=== PATIENT | female | born 1990 | race Caucasian/White ===

== ENCOUNTER 2019-05-29 02:35 | Emergency (ER) | payer OTHER ==
[2019-05-29 02:58] VITALS: BP 116/74; PULSE 100; BMI 30.2
[2019-05-29] MEDS ORDERED: ACETAMINOPHEN 500 MG TABLET (FP) PO ONE (03:06)
--- NOTE | 2019-05-29 03:08 | PDOC ---
History of Present Illness <MezaRoma - Last Filed: 05/29/19 05:11> - General History Source: Patient Exam Limitations: No Limitations - History of Present Illness Initial Comments: 05/29/19 03:02 28 YO female who believes she is based on positive home tests x4 yesterday, who p/w lower abdominal cramping today without associated symptoms. She denies vaginal bleeding or discharge, f/c/n/v/d/c, dysuria, hematuria, new back pain, dizziness, or other symptoms. She has not seen an OB/ COMMUNICATIONS EXECUTIVE provider yet and has not had an US this . She cannot recall the date of her LMP but states that she has had one this year. <Garcia,Agueda - Last Filed: 05/29/19 05:27> - General Stated Complaint: ABD PAIN Time Seen by Provider: 05/29/19 02:55 Past History <MezaRoma - Last Filed: 05/29/19 05:11> - Past Medical History COPD: No - Immunization History Immunization Up to Date: Yes - Suicide/Smoking/Psychosocial Hx Smoking History: Never smoked Have you smoked in the past 12 months: No Hx Alcohol Use: No Drug/Substance Use Hx: No Substance Use Type: None <Agueda aGrcia - Last Filed: 05/29/19 05:27> - Past Medical History Allergies/Adverse Reactions: Allergies Allergy/AdvReac Type Severity Reaction Status Date / Time No Known Allergies Allergy Verified 09/15/15 17:18 Home Medications: Ambulatory Orders Multivitamin [Multiple Vitamins] 1 each PO DAILY 05/29/19 Review of Systems - Review of Systems Able to Perform ROS?: Yes Comments:: 05/29/19 03:13 GEN: no fever, chills, malaise, generalized weakness, or weight change HEENT: no ear pain, sore throat, vision change, or eye pain CV: no chest pain, palpitations, lightheadedness, syncope, or edema RESP: no cough, wheezing, or SOB GI: abdominal pain, no nausea, vomiting, diarrhea, constipation, or white/black/ bloody stool : no dysuria, hematuria, incontinence, retention, bleeding, or discharge MSK: no neck/back pain, muscle weakness/pain, or joint swelling/pain NEURO: no headache, seizure, vertigo, numbness, tingling, or focal weakness PSYCH: no substance use, no behavior change SKIN: no jaundice, no rash ROS otherwise negative except as noted in HPI <Agueda Garcia - Last Filed: 05/29/19 05:27> *Physical Exam - Vital Signs Last Vital Signs Temp Pulse Resp BP Pulse Ox 100 H 18 116/74 100 05/29/19 02:53 05/29/19 02:53 05/29/19 02:53 05/29/19 02:53 <Roma Meza - Last Filed: 05/29/19 05:11> - Vital Signs Last Vital Signs Temp Pulse Resp BP Pulse Ox 100 H 18 116/74 100 05/29/19 02:53 05/29/19 02:53 05/29/19 02:53 05/29/19 02:53 - Physical Exam Comments: 05/29/19 03:14 GENERAL: well-appearing, A/Ox4, no distress, answers questions appropriately HEENT: PERRLA, EOMI, moist mucous membranes NECK/BACK: no midline ttp, no spinal stepoff or deformity, no hematoma, full ROM , neck supple CARDIOVASCULAR: regular rate/rhythm, normal S1S2, no MGR, strong peripheral pulses, capillary refill <2 seconds, extremities wwp, no edema LUNGS/RESPIRATORY: no respiratory distress, CTAB GI/ABDOMEN: symmetric [id number], normoactive BS, soft, mild suprapubic ttp, no midline pulsatile masses : no CVA tenderness EXTREMITIES: no muscle atrophy, no acute deformity SKIN: warm and dry, no pallor, no jaundice, no rash, no bruising, no skin breakdown, no cuts, no lesions NEUROLOGICAL: GCS 15, CN II-XII grossly intact, 5/5 strength proximally and distally, no facial droop <Agueda Garcia - Last Filed: 05/29/19 05:27> Procedures - Bedside Ultrasound Remarks: 05/29/19 05:15 STUDY: Early OB INDICATION: Suprapubic cramping in early FINDINGS: Unable to identify IUP or intrauterine yolk sac, no pelvic free fluid CONCLUSION: Likely too early to identify IUP, no e/o ectopic wwo rupture <Agueda Garcia - Last Filed: 05/29/19 05:27> ED Treatment Course - LABORATORY CBC & Chemistry Diagram: 05/29/19 03:15 05/29/19 03:15 - ADDITIONAL ORDERS Additional order review: Laboratory Results 05/29/19 05/29/19 05/29/19 03:20 03:15 03:15 Sodium 139 Potassium 3.6 Chloride 109 H Carbon Dioxide 23 Anion Gap 7 L BUN 11.1 Creatinine 0.6 Est GFR (CKD-EPI)AfAm 143.77 Est GFR (CKD-EPI)NonAf 124.04 Random Glucose 98 Calcium 8.5 Total Bilirubin 0.3 AST 7 L ALT 19 Alkaline Phosphatase 54 Total Protein 6.9 Albumin 3.6 Beta HCG, Quant 133.9 Urine Color Yellow Urine Appearance Clear Urine pH 6.5 Ur Specific [place] 1.023 Urine Protein Negative Urine Glucose (UA) Negative Urine Ketones Negative Urine Blood Trace Urine Nitrite Negative Urine Bilirubin Negative Urine Urobilinogen 2.0 H Ur Leukocyte Esterase Negative Urine WBC (Auto) 1 Urine RBC (Auto) 5 Urine Casts (Auto) 0 U Epithel Cells (Auto) 0.9 Urine Bacteria (Auto) 82.5 05/29/19 03:15 RBC 4.24 MCV 88.8 MCHC 33.6 RDW 13.4 MPV 7.5 Neutrophils % 57.0 Lymphocytes % 29.9 Monocytes % 7.6 Eosinophils % 4.9 H Basophils % 0.6 - Medications Given in the ED: ED Medications Discontinued Medications Generic Name Dose Route Start Last Admin Trade Name Freq PRN Reason Stop Dose Admin Acetaminophen 975 mg 05/29/19 03:06 05/29/19 04:05 Tylenol - PO 05/29/19 03:07 975 mg ONCE ONE Administration <Roma Meza - Last Filed: 05/29/19 05:11> - LABORATORY CBC & Chemistry Diagram: 05/29/19 03:15 05/29/19 03:15 <Agueda Garcia - Last Filed: 05/29/19 05:27> Medical Decision Making - Medical Decision Making 05/29/19 03:10 First trimester female p/w lower abdominal pain. Initial Vital Signs Pulse Resp BP Pulse Ox 100 H 18 116/74 100 05/29/19 02:53 05/29/19 02:53 05/29/19 02:53 05/29/19 02:53 Exam: As noted in Physical Exam section. DDX IBNLT: most likely round ligament pain as normal progression of , also considered are UTI and threatened/inevitable/incomplete/complete/septic , ectopic. Unlikely to be PID, TOA/cervicitis, or endometritis given lack of any additional symptoms other than the abdominal pain and lack of patient concern for STI. Also possible are ruptured ovarian cyst, ovarian torsion, constipation, fibroids, etc. W/U ordered: Labs as noted below, TVUS. TX ordered: Tylenol US: Labs: Reassessment: Repeat VS: DISCHARGE Workup is not concerning for emergency-level pathology at this time. The Pt is appropriate for discharge home w/ close outpatient f/u. The Pt is comfortable with this plan and will follow up with their primary care provider in 1-3 days. She will also follow up with her COMMERCIAL CONSTRUCTION ESTIMATOR in 1-3 days. She will take primarily Tylenol for pain. Specific return precautions are discussed and they will come back to the ER if necessary. <Agueda Garcia - Last Filed: 05/29/19 05:27> *DC/Admit/Observation/Transfer <Roma Meza - Last Filed: 05/29/19 05:11> - Discharge Dispostion Decision to Admit order: No <Agueda Garcia - Last Filed: 05/29/19 05:27> Diagnosis at time of Disposition: Abdominal pain during Qualifiers: Trimester: first trimester Qualified Code(s): O26.891 - Other specified related conditions, first trimester; R10.9 - Unspecified abdominal pain - Discharge Dispostion Disposition: HOME Condition at time of disposition: Improved - Referrals Referrals: ON STAFF,NOT [Primary Care Provider] - - Patient Instructions Printed Discharge Instructions: DI for Abdominal Pain -- Early Additional Instructions: You were seen in the ER for pelvic pain in early . We did an exam, laboratory work on your blood and urine, and an ultrasound, and we did not find any signs of an emergency. You hormone levels were elevated, but your ultrasound did not show the yet because it appears to be too early. Your pain improved with the medications we gave you here in the ER. After our assessment, we believe you are not having a medical emergency and you are safe to go home. Please take tylenol for any discomfort. Follow up with your COMMERCIAL CONSTRUCTION ESTIMATOR. Call their clinic [facility], tell them you were seen in the ER, and tell them you need an appointment. Please come back to the ER at any time, 24 hours a day, for any new or worsening symptoms, like worsening pelvic pain, discharge, high fever, or other symptoms. If you are having severe or life threatening symptoms , or symptoms that make it unsafe to drive or have someone drive you, please call 911. - Post Discharge Activity
--- NOTE | 2019-05-29 03:21 | PDOC ---
Attending Attestation - Resident Resident Name: RadhaAgueda - ED Attending Attestation I have performed the following: I have examined & evaluated the patient, The case was reviewed & discussed with the resident, I agree w/resident's findings & plan - HPI HPI: 05/29/19 05:13 Pt states that 2 days ago she felt like her saliva was "thick" as it ws when she had her first ; she did a home preg test that was +. Then she was on a boat today and she felt suprapubic pain; a bere told her how she lost her preg after a boat ride, so patient comes to the ER to make sure her preg is okay. 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 - Physicial Exam PE: 05/29/19 05:16 Agree with resident exam. Pt has a normal exam. - Medical Decision Making 05/29/19 05:16 beta-HCG is 133 and she is too early to see anything on sono; pt will be discharged home with OB follow up as an outpatient.
[2019-05-29 03:25] LABS: HEMOGLOBIN 12.6 GM/dL (10.7-15.3); MCH 29.8 pg (25.7-33.7); RBC 4.24 M/mm3 (3.60-5.2)
[2019-05-29 03:29] LABS: BASO % 0.6 % (0-2.0); EOS % 4.9 % (0-4.5); HEMATOCRIT 37.6 % (32.4-45.2); LYMPH % 29.9 % (8-40); MCHC 33.6 g/dl (32.0-36.0); MEAN CELL VOLUME 88.8 fl (80-96); MEAN PLT VOLUME 7.5 fl (7.5-11.1); MONO % 7.6 % (3.8-10.2); PLATELET COUNT 234 K/MM3 (134-434); RDW 13.4 % (11.6-15.6)
[2019-05-29 04:01] LABS: ALBUMIN 3.6 g/dl (3.4-5.0); BILIRUBIN,TOTAL 0.3 mg/dL (0.2-1); BLOOD UREA NITROGEN 11.1 mg/dL (7-18); CALCIUM 8.5 mg/dL (8.5-10.1); CREATININE 0.6 mg/dL (0.55-1.3); POTASSIUM 3.6 mmol/L (3.5-5.1); TOT PROT 6.9 g/dl (6.4-8.2)
[2019-05-29] MEDS ORDERED: ACETAMINOPHEN 325 MG TABLET (FP) ONE (04:01)
[2019-05-29 04:27] LABS: EPI CELLS 0.9 /HPF (0-5/HPF); HYALINE CASTS 0 /lpf (0-8); PH,URINE 6.5 (5.0-8.0); URINE APPEARANCE CLEAR; URINE BACTERIA 82.5 /hpf (NEGATIVE); URINE BILIRUBIN NEGATIVE (NEGATIVE); URINE COLOR YELLOW; URINE GLUCOSE (UA) NEGATIVE (NEGATIVE); URINE KETONE NEGATIVE (NEGATIVE); URINE LEUK ESTERASE NEGATIVE (NEGATIVE); URINE NITRITE NEGATIVE (NEGATIVE); URINE PROTEIN NEGATIVE (NEGATIVE); URINE RBC 5 /hpf (0-4); URINE WBC 1 /hpf (0-5)
== END 2019-05-29 05:42 | disposition home or self-care (01) ==
LOC: JER 02:35
DX: O26.891 Other specified pregnancy related conditions, first trimester (principal); Z3A.00 Weeks of gestation of pregnancy not specified; R10.30 Lower abdominal pain, unspecified
CPT/HCPCS: 36415; 80053; 81003; 84702; 85025; 87086; 99283-25